=== PATIENT | female | born 1945 | race Caucasian/White ===

== ENCOUNTER → 2017-01-03 | Outpatient (CLI) | payer OTHER | LOC: FIMAGING 09:15 | PROVIDERS: ATTEND Urology | DX: N20.0 Calculus of kidney (principal) ==

== ENCOUNTER 2017-04-02 12:44 | Observation (INO) | payer OTHER ==
--- NOTE | 2017-04-02 13:01 | EDPHY ---
General - History Smoking Status: Former smoker Narrative: I have evaluated and participated in the management of this patient. My co- signature indicates that I have reviewed this chart and that I agree with the findings and the plan of care as documented. My personal history and physical findings include: 71-year-old female history of nephrolithiasis who presents with 2-3 days of right-sided flank and abdominal pain. The pain is constant with waxing and waning. She has not had fever, vomiting, diarrhea, and denies urinary symptoms. On examination heart is regular, lungs are clear to auscultation, abdomen is obese, soft, without distention. She has tenderness in the midepigastrium and right upper quadrant without guarding. Mild right CVA tenderness. (Lynne Todd) CHIEF COMPLAINT: Abdominal and flank pain HISTORY OF PRESENT ILLNESS: Patient complains of right abdominal flank pain. Onset was sometime or Tuesday, she does not recall. Location is the right flank and into the right side of the abdomen. Duration is constant. It does wax and wane but never fully resolved. It is moderate to severe when she moves or bears down. Minimal improvement she holds rest. Endorses anorexia but no vomiting. No fever or chills. No trauma or injury. No urinary complaints. Difficulty with bowel movement this morning which is not necessarily abnormal for her. No bloody stools or urine. No fever. She contacted her primary care physician on the day of onset. They did instruct her to come to the emergency department. She elected not to do so as her symptoms eventually resolved after 2 hours. She went to [facility] today, and they sent her to our facility for further workup. No other associated complaints or modifying factors. REVIEW OF SYSTEMS: Ten systems reviewed and are negative unless otherwise noted in the HPI PCP: Dr. Reyna Abebe SPECIALISTS: Dr. Holguin, GI PAST MEDICAL HISTORY: Hypertension, osteopenia, nephrolithiasis PAST SURGICAL HISTORY: Dilation and curettage x2 SOCIAL HISTORY: Nonsmoker. Originally from [place]. Lives here locally FAMILY HISTORY: Noncontributory EXAMINATION General Appearance: Alert, no distress Head: normocephalic, atraumatic Eyes: Pupils equal and round, no conjunctival pallor or injection ENT, Mouth: Mucous membranes moist Neck: Normal inspection, supple, non-tender Respiratory: Lungs are clear to auscultation. No wheezing, rhonchi or crackles Cardiovascular: Regular rate and rhythm. No murmur Gastrointestinal: Obese Abdomen is soft and nondistended. There is right CVA tenderness. Mild right-sided right upper and right lower quadrant tenderness. No guarding. No tympany. No rigidity. Difficult to obtain fully reliable abdominal examination due to body habitus. Neurological: A&O, nonfocal, normal gait, strength is symmetric in the lower extremities. Skin: Warm and dry, no rash. No petechiae or purpura Extremities: Nontender, no pedal edema Psychiatric: Mood and affect normal DIFFERENTIAL DIAGNOSES: Including but not limited to renal colic, biliary colic, cholecystitis, cholelithiasis, UTI, nephrolithiasis, colitis, diverticulitis, appendicitis MDM: 1:20 p.m. Right flank and abdominal pain. She is in no acute distress with normal vital signs. Given the patient's age and complaint, CT scan of the abdomen pelvis will be ordered. I am awaiting urinalysis to determine with without IV contrast. She is in no acute distress. IV is currently being placed. IV fluid has been ordered. She is not require any pain medication at this time. 1:35 p.m. CBC does reveal leukocytosis with mild left shift. Point of care creatinine is slightly elevated 1.3. No previous available for comparison. Urinalysis reveals some red blood cells, trace leukocyte Estrace and trace ketones. Urine culture has been added. She has been evaluated by Dr. Todd. We have ordered CT scan of the abdomen pelvis without contrast. 3:10 p.m. Notified by radiologist Dr. Morales. CT scan reveals right ureteral stone. Court states a stone in the proximal ureter at the level L5, 8 mm x 3 mm x 4 mm. Moderate right hydronephrosis. 3:30 p.m. Case discussed with the on-call urologist for Dr. Jose Chandler. We discussed the CT scan findings. She does not feel that this stone is likely past. She will come evaluate the patient in the emergency department. I have ordered IV pain medication at this time. I have not ordered Toradol as the patient's creatinine is elevated above 1. 4:20 p.m. Patient resting comfortably. Still waiting Neurology consult. She is in no acute distress. 5:[address] Garcia is here to evaluate the patient. 5:40 p.m. Patient has been evaluated by Dr. Garcia. She recommends admission to the hospitalist. She would like the patient to have her urine strain. She would like the patient to receive Flomax once daily. She liked the urine to be strain. She would like to be contacted should the patient develop fever. Plans for surgical intervention in the morning. I will contact the hospitalist for admission. 5:45 p.m. Case discussed with hospitalist Dr. Pablo. He will admit the patient to his service to observation status. She is admitted in stable condition. (Musa Estevez) - Diagnostics Imaging Results: Imaging Impressions Abdomen/Pelvis CT 04/02/17 13:39 Impression: Right renal obstruction secondary to a ureteral stone. Results called and discussed with Musa Estevez, at 04/02/2017 15:10 Attention: This CT examination is specifically designed to evaluate patients who are clinically suspected of having acute obstructive uropathy. This examination does not use radiographic contrast, and as such, provides only a limited evaluation of the abdomen, pelvis and retroperitoneum. If there is further clinical suspicion for pathological conditions other than obstructive uropathy, a complete CT evaluation of the abdomen and pelvis utilizing intravenous, oral, and rectal contrast should be considered. General information for patients regarding this examination can be found at [email or web address]. If you have questions or comments about this report, please contact me at [phone] (hospital) or [phone] (cell). - Objective Vital Signs: Initial Vital Signs Temperature (C) 98.8 F 04/02/17 12:50 Heart Rate 97 04/02/17 12:50 Respiratory Rate 18 04/02/17 12:50 Blood Pressure 173/89 H 04/02/17 12:50 O2 Sat (%) 96 04/02/17 12:50 O2 Delivery Mode Room Air Allergies/Adverse Reactions: Beef Containing Products Allergy (Verified 04/02/17 12:49) Milk Containing Products Allergy (Verified 04/02/17 12:49) pineapple Allergy (Verified 04/02/17 12:49) eggs Allergy (Uncoded 04/12/16 12:04) milk Allergy (Uncoded 04/12/16 12:05) Home Medications: Medication Instructions Recorded ACETAMINOPHEN 500 mg PO PRN PRN 04/12/16 ALPHA LIPOIC ACID 300 mg PO DAILY 04/12/16 Biotin 500 mcg PO DAILY 04/12/16 Co Q-10 300 mg PO DAILY 04/12/16 Diovan Hct 160-25 mg Tablet 160 mg PO DAILY 04/12/16 [place] 3/Dha/Epa/Other Om3/D3 190 mg PO TID 04/12/16 Vitamin D3 (*) 4,000 iunits PO DAILY 04/12/16 Laboratory Results: Laboratory Results 04/02/17 13:25 04/02/17 13:25 04/02/17 04/02/17 04/02/17 13:25 13:25 13:25 WBC 10.68 10^3/uL H 10^3/uL (3.80-9.50) RBC 5.29 10^6/uL 10^6/uL (4.18-5.33) Hgb 15.8 g/dL g/dL (12.6-16.3) POC Hgb Hct 44.4 % % (38.0-47.0) POC Hct MCV 83.9 fL fL (81.5-99.8) MCH 29.9 pg pg (27.9-34.1) MCHC 35.6 g/dL g/dL (32.4-36.7) RDW 13.1 % % (11.5-15.2) Plt Count 223 10^3/uL 10^3/uL (150-400) MPV 10.0 fL fL (8.7-11.7) Neut % (Auto) 78.3 % H % (39.3-74.2) Lymph % (Auto) 14.8 % L % (15.0-45.0) [place] % (Auto) 6.4 % % (4.5-13.0) Eos % (Auto) 0.2 % L % (0.6-7.6) Baso % (Auto) 0.1 % L % (0.3-1.7) Nucleat RBC Rel Count 0.0 % % (0.0-0.2) Absolute Neuts (auto) 8.37 10^3/uL H 10^3/uL (1.70-6.50) Absolute Lymphs (auto) 1.58 10^3/uL 10^3/uL (1.00-3.00) Absolute Monos (auto) 0.68 10^3/uL 10^3/uL (0.30-0.80) Absolute Eos (auto) 0.02 10^3/uL L 10^3/uL (0.03-0.40) Absolute Basos (auto) 0.01 10^3/uL L 10^3/uL (0.02-0.10) Absolute Nucleated RBC 0.00 10^3/uL 10^3/uL (0-0.01) Immature Gran % 0.2 % % (0.0-1.1) Immature Gran # 0.02 10^3/uL 10^3/uL (0.00-0.10) PT 13.2 SEC SEC (12.0-15.0) INR 1.01 (0.83-1.16) APTT 23.5 SEC SEC (23.0-38.0) POC Sodium Sodium 142 mEq/L mEq/L (134-144) POC Potassium Potassium 4.0 mEq/L mEq/L (3.5-5.2) POC Chloride Chloride 106 mEq/L mEq/L (97-110) Carbon Dioxide 22 mEq/l mEq/l (22-31) Anion Gap 14 mEq/L mEq/L (8-16) POC BUN BUN 18 mg/dL mg/dL (7-23) Creatinine 1.2 mg/dL H mg/dL (0.6-1.0) POC Creatinine Estimated GFR 44 Glucose 97 mg/dL mg/dL (70-100) POC Glucose Calcium 9.9 mg/dL mg/dL (8.5-10.4) Total Bilirubin 1.2 mg/dL mg/dL (0.1-1.4) Conjugated Bilirubin 0.1 mg/dL mg/dL (0.0-0.5) Unconjugated Bilirubin 1.1 mg/dL mg/dL (0.0-1.1) AST 21 IU/L IU/L (14-46) ALT 41 IU/L IU/L (9-52) Alkaline Phosphatase 95 IU/L IU/L (38-126) Troponin I < 0.012 ng/mL ng/mL (0.000-0.034) Total Protein 6.7 g/dL g/dL (6.3-8.2) Albumin 4.7 g/dL g/dL (3.5-5.0) Lipase 47 IU/L IU/L (23-300) Urine Color Urine Appearance Urine pH Ur Specific [place] Urine Protein Urine Ketones Urine Blood Urine Nitrate Urine Bilirubin Urine Urobilinogen Ur Leukocyte Esterase Urine RBC Urine WBC Ur Epithelial Cells Urine Bacteria Urine Mucus Urine Glucose 04/02/17 04/02/17 13:21 13:02 WBC RBC Hgb POC Hgb 15.6 gm/dL gm/dL (12.6-16.3) Hct POC Hct 46 % % (38-47) MCV MCH MCHC RDW Plt Count MPV Neut % (Auto) Lymph % (Auto) [place] % (Auto) Eos % (Auto) Baso % (Auto) Nucleat RBC Rel Count Absolute Neuts (auto) Absolute Lymphs (auto) Absolute Monos (auto) Absolute Eos (auto) Absolute Basos (auto) Absolute Nucleated RBC Immature Gran % Immature Gran # PT INR APTT POC Sodium 141 mEq/L mEq/L (134-144) Sodium POC Potassium 3.8 mEq/L mEq/L (3.3-5.0) Potassium POC Chloride 107 mEq/L mEq/L (97-110) Chloride Carbon Dioxide Anion Gap POC BUN 18 mg/dL mg/dL (7-23) BUN Creatinine POC Creatinine 1.3 mg/dL H mg/dL (0.6-1.0) Estimated GFR Glucose POC Glucose 101 mg/dL H mg/dL (70-100) Calcium Total Bilirubin Conjugated Bilirubin Unconjugated Bilirubin AST ALT Alkaline Phosphatase Troponin I Total Protein Albumin Lipase Urine Color PALE YELLOW Urine Appearance CLEAR Urine pH 5.0 (5.0-7.5) Ur Specific [place] 1.005 (1.002-1.030) Urine Protein NEGATIVE (NEGATIVE) Urine Ketones TRACE H (NEGATIVE) Urine Blood NEGATIVE (NEGATIVE) Urine Nitrate NEGATIVE (NEGATIVE) Urine Bilirubin NEGATIVE (NEGATIVE) Urine Urobilinogen NEGATIVE EU EU (0.2-1.0) Ur Leukocyte Esterase TRACE H (NEGATIVE) Urine RBC 5-10 /hpf H /hpf (0-3) Urine WBC 3-5 /hpf H /hpf (0-3) Ur Epithelial Cells NONE SEEN /lpf /lpf (NONE-1+) Urine Bacteria TRACE /hpf H /hpf (NONE SEEN) Urine Mucus TRACE /lpf /lpf (NONE-1+) Urine Glucose NEGATIVE (NEGATIVE) Medications Given: Discontinued Medications Sodium Chloride (Ns) 1,000 mls @ 0 mls/hr IV EDNOW ONE; Wide Open PRN Reason: Protocol Stop: 04/02/17 13:17 Last Admin: 04/02/17 13:59 Dose: 1,000 mls Ceftriaxone Sodium/Dextrose (Rocephin 1 Gm (Premix)) 50 mls @ 100 mls/hr IV EDNOW ONE PRN Reason: Protocol Stop: 04/02/17 15:44 Last Admin: 04/02/17 15:40 Dose: 50 mls Morphine Sulfate (Morphine) 4 mg IVP EDNOW ONE Stop: 04/02/17 15:29 Last Admin: 04/02/17 15:40 Dose: 4 mg Ondansetron HCl (Zofran) 4 mg IVP EDNOW ONE Stop: 04/02/17 15:29 Last Admin: 04/02/17 15:39 Dose: 4 mg Point of Care Test Results: 04/02/17 13:21 POC Sodium 141 POC Potassium 3.8 POC Chloride 107 POC BUN 18 POC Creatinine 1.3 H POC Glucose 101 H Departure - Departure Disposition: [facility] Inpatient Acute Clinical Impression: Ureteral stone with hydronephrosis, Flank pain, acute Condition: Good Referrals: Reyna Abebe MD [Primary Care Provider] - As per Instructions
[2017-04-02 13:29] LABS: COLOR PALE YELLOW; LEUKOCYTE ESTERASE,URINE TRACE (NEGATIVE); NITRITE,URINE NEGATIVE (NEGATIVE)
[2017-04-02 13:32] LABS: % IMMATURE GRANULYOCYTES 0.2 % (0.0-1.1); ABSOLUTE IMMATURE GRANULOCYTES 0.02 10^3/uL (0.00-0.10); ADD DIFF? NO; ADD MORPH? NO; ADD SCAN? NO; ATYPICAL LYMPHOCYTE FLAG 0 (0-99); FRAGMENT RBC FLAG 0 (0-99); HEMATOCRIT 44.4 % (38.0-47.0); HEMOGLOBIN 15.8 g/dL (12.6-16.3); LEFT SHIFT FLG 0 (0-99); LIPEMIA HEMOLYSIS FLAG 90 (0-99); MEAN CELL HEMOGLOBIN 29.9 pg (27.9-34.1); MEAN CELL HEMOGLOBIN CONCENTR. 35.6 g/dL (32.4-36.7); MEAN CELL VOLUME 83.9 fL (81.5-99.8); PLATELET CLUMPS FLAG 0 (0-99); PLATELET COUNT 223 10^3/uL (150-400); RED BLOOD CELL COUNT 5.29 10^6/uL (4.18-5.33); RED CELL DISTRIBUTION WIDTH 13.1 % (11.5-15.2)
[2017-04-02 13:35] LABS: BACTERIA TRACE /hpf (NONE SEEN); MUCUS TRACE /lpf (NONE-1+)
[2017-04-02 13:44] LABS: ALANINE AMINOTRANSFERASE 41 IU/L (9-52); ALBUMIN 4.7 g/dL (3.5-5.0); ALKALINE PHOSPHATASE 95 IU/L (38-126); ANION GAP 14 mEq/L (8-16); ASPARTATE AMINOTRANSFERASE 21 IU/L (14-46); BILIRUBIN,TOTAL 1.2 mg/dL (0.1-1.4); BILIRUBIN-CONJUGATED 0.1 mg/dL (0.0-0.5); BILIRUBIN-UNCONJUGATED 1.1 mg/dL (0.0-1.1); CALCIUM 9.9 mg/dL (8.5-10.4); CARBON DIOXIDE 22 mEq/l (22-31); CHLORIDE 106 mEq/L (97-110); CREATININE 1.2 mg/dL (0.6-1.0); GLOMERULAR FILTRATION RATE 44; GLUCOSE 97 mg/dL (70-100); SODIUM 142 mEq/L (134-144); TOTAL PROTEIN 6.7 g/dL (6.3-8.2)
[2017-04-02 13:54] LABS: TROPONIN I < 0.012 ng/mL (0.000-0.034)
[2017-04-02] MEDS: NS 1,000 ML IV ONE ×2 (13:59→17:55)
[2017-04-02 14:07] LABS: INR 1.01 (0.83-1.16); PROTIME(PATIENT) 13.2 SEC (12.0-15.0)
[2017-04-02 14:08] LABS: APTT 23.5 SEC (23.0-38.0)
--- NOTE | 2017-04-02 15:08 | CPEKG ---
Heart Rate: 93 RR Interval: 645 P-R Interval: 168 QRSD Interval: 92 QT Interval: 352 QTC Interval: 438 P Sharon: 44 QRS Sharon: -30 T Wave Sharon: 22 EKG Severity - BORDERLINE ECG - EKG Impression: SINUS RHYTHM EKG Impression: LEFT AXIS DEVIATION EKG Impression: BORDERLINE R WAVE PROGRESSION, ANTERIOR LEADS Electronically Signed By: Adonis Galdamez 02-Apr-2017 15:27:34
[2017-04-02] MEDS ORDERED: ONDANSETRON 4 MG/2 ML VIAL IVP ONE (15:28)
[2017-04-02] MEDS ORDERED: NS 1,000 ML IV ONE (17:38)
[2017-04-02] MEDS ORDERED: TAMSULOSIN HCL 0.4 MG CAP PO ONE (17:38)
[2017-04-02] MEDS ORDERED: ONDANSETRON 4 MG/2 ML VIAL IVP PRN (17:52)
[2017-04-02] MEDS ORDERED: ONDANSETRON DISINTEGRATING 4 MG TAB PO PRN (17:52)
[2017-04-02] MEDS ORDERED: HYDROmorphONE/DILAUDID 1 MG/ML INJ IVP PRN (17:52)
[2017-04-02] MEDS ORDERED: HYDROmorphONE/DILAUDID 2 MG TAB PO PRN (17:52)
--- NOTE | 2017-04-02 17:53 | PDCONSULT ---
Information Security Consultant Note: RFC: right obstructing ureteral stone HPI: Very pleasant 71F w presents w acute onset R flank pain a couple days ago, worsened today and she came to ER for evaluation. No fevers, chills, Nausea or emesis. Pain is well controlled after morphine in the OR. She actually feels good currently. No sx of UTI - no dysuria, no hematuria. CT scan abd/pel today performed - images personally reviewed by myself - R 4x8mm obstructing proximal stone, associated hydronephrosis and hydroureter, two nonobs renal stones, one 7mm, the other 2mm. No perinepheric stranding. No other stones seen - none in the left collecting system. ROS 10pt ROS performed, as stated in HPI, otherwise negative. Meds: Reviewed. PAST MEDICAL HISTORY: Hypertension, osteopenia, nephrolithiasis, ABDOULAYE PAST SURGICAL HISTORY: Dilation and curettage x2 SOCIAL HISTORY: Nonsmoker. Originally from [place]. Lives here locally FAMILY HISTORY: Noncontributory EXAMINATION General Appearance: NAD A&O CV: regular rate Respiratory: Normal rate of brathing Cardiovascular: Regular rate and rhythm. No murmur Gastrointestinal: Obese, soft, NT, ND. : Right CVA tenderness. Skin: Warm and dry, no rash. No petechiae or purpura Extremities: Nontender, no pedal edema Psychiatric: Mood and affect normal Labs: WBC 10.58 Hgb 15 Cr 1.2 UA - trace leuks, 1-3WBC A/P Right ureteral stone, obstructing and symptomatic. Right nonobs stones. I reviewed with her that her chance of passing this ureteral stone is <40% in 21days and she should expect to be on strong pain meds and drink 2-3L a day in order to pass this stone. I reviewed with her the images. I reviewed with her that recommendation is intervention w ureteroscopy, laser lithotripsy, stent. She said that ESWl does not work for her stones. I explained the risks of intervention including bleeding, infection, pain, hematuria, injury to the bladder, ureter, urethra, surrounding tissues, need for a stent and likely stent discomfort. Explained the possibility that I may not be able to access her stone w my instruments which would require placement of a ureteral stent and another surgery to treat her stones. Explained the possibility that infection may be above the stone and any infection seen during the surgery would require placement of a stent and treatment of stone at a later date after infection resolved. Explained the possibility that if I would not be able to even place a stent, IR would need to place a PCNT and then subsequent surgeries would be required to treat her stones. She understood these risks, that the benefit of treating her obstructing stone and nonobs stones outweights the risks. She understood and agrees to proceed. We have added her on for tomorrow at 8am, laser rent has been notified and will be here. Plan: Admit to Hospitalist. Appreciate Dr. Pablo's assistance in taking care of this patient. Call me if any fevers or unstable vitals tonight. Flomax, strain her urine, IVF, NPO at MN and continue narcotic pain meds PRN. Consent discussed and received. Cee Garcia MD Urology [facility]
[2017-04-02] MEDS ORDERED: POLYETHYLENE GLYCOL 3350 17 GM PKT PO PRN (17:55)
[2017-04-02] MEDS ORDERED: LACTULOSE 20 GM/30 ML UDCUP PO PRN (17:55)
[2017-04-02] MEDS ORDERED: BISACODYL 10 MG SUPP PR PRN (17:55)
[2017-04-02] MEDS ORDERED: MAGNESIUM HYDROXIDE 30 ML UDCUP PO PRN (17:55)
[2017-04-02] MEDS ORDERED: NS 1,000 ML IV SCH (18:00)
--- NOTE | 2017-04-02 19:48 | PDGENHP ---
History and Physical - Chief Complaint Acute flank pain - History of Present Illness Primary care provider: Dr. Reyna Abebe Primary director of diagnostic imaging: Dr. Todd Primary urologist: Dr. German Cuevas HPI: 71-year-old female presenting with acute flank pain located in the right flank, characterized as sharp severe waxing and waning pain with onset of symptoms 3 days ago and constant duration thereafter. Pain is exacerbated by motion and deep inspiration, slightly alleviated with rest. It is associated with anorexia, nausea which has been exacerbated by food smells. She received 4 mg of morphine in the emergency department and this seemed to alleviate the pain, but it is returning at this time and she is beginning to feel somewhat tremulous. She otherwise denies any urinary symptoms, denies any fevers or chills. She reports that the symptoms are somewhat lower in severity then when she experienced a kidney stone 8 years ago. She has otherwise been eating and drinking well prior to this presentation, and she does not know of any precipitating factors. History Information - Allergies/Home Medication List Allergies/Adverse Reactions: Beef Containing Products Allergy (Verified 04/02/17 12:49) Milk Containing Products Allergy (Verified 04/02/17 12:49) pineapple Allergy (Verified 04/02/17 12:49) eggs Allergy (Uncoded 04/12/16 12:04) milk Allergy (Uncoded 04/12/16 12:05) Home Medications: Co Q-10 300 mg PO DAILY 04/12/16 [Last Taken 04/01/17] [place] 3/Dha/Epa/Other Om3/D3 190 mg PO DAILY 04/12/16 [Last Taken 04/01/17] Vitamin D3 (*) 4,000 iunits PO DAILY 04/12/16 [Last Taken 04/01/17] Ascorbic Acid [Vitamin C 500 mg (*)] 500 mg PO DAILY 04/02/17 [Last Taken Unknown] Valsartan [Diovan (*)] 160 mg PO DAILY 04/02/17 [Last Taken 04/02/17] I have personally reviewed and updated: family history, medical history, social history, surgical history - Past Medical History Additional medical history: Nephrolithiasis with natural passage of stone in 2007. Varicose veins with chronic lower extremity edema, outside records reviewed including 04/13/[address] Jennifer Siddiqi. Osteoarthritis of bilateral knees. Hypertension - Surgical History Additional surgical history: D and C. Vein sclerotherapy. Colonoscopy 3 years ago identifying at no - Family History Additional family history: Family history of nephrolithiasis or renal failure, colon cancer is prevalent - Social History Smoking Status: Former smoker Alcohol Use: Rarely Drug Use: None Additional social history: Normally independent in her ADLs, likes to cook, likes to eat Review of Systems Review of Systems: ROS: 10pt was reviewed & negative except for what was stated in HPI & below Gastrointestinal: Reports: abdominal pain, nausea Physical Exam Physical Exam: Temp Pulse Resp BP Pulse Ox 36.8 C 104 H 16 142/79 H 92 04/02/17 18:33 04/02/17 18:33 04/02/17 18:33 04/02/17 18:33 04/02/17 18:33 Constitutional: no apparent distress, obese, uncomfortable, No not in pain ( Mild pain) Eyes: PERRL, anicteric sclera, EOMI Ears, Nose, Mouth, Throat: moist mucous membranes, hearing normal, ears appear normal, no oral mucosal ulcers Cardiovascular: tachycardia, edema (Trace bilateral lower extremity), No systolic murmur, No irregularly irregular Respiratory: no respiratory distress, no rales or rhonchi, clear to auscultation Gastrointestinal: normoactive bowel sounds, no palpable masses, tenderness ( Right CVA), guarding (Voluntary right CVA), No distension Genitourinary: no bladder fullness, no bladder tenderness Neurologic: AAOx3, sensation intact bilaterally, No weakness Psychiatric: interacting appropriately, not anxious, not encephalopathic, thought process linear Lab Data & Imaging Review 04/02/17 13:25 04/02/17 13:25 WBC 10.68 10^3/uL (3.80-9.50) H 04/02/17 13:25 RBC 5.29 10^6/uL (4.18-5.33) 04/02/17 13:25 Hgb 15.8 g/dL (12.6-16.3) 04/02/17 13:25 POC Hgb 15.6 gm/dL (12.6-16.3) 04/02/17 13:21 Hct 44.4 % (38.0-47.0) 04/02/17 13:25 POC Hct 46 % (38-47) 04/02/17 13:21 MCV 83.9 fL (81.5-99.8) 04/02/17 13:25 MCH 29.9 pg (27.9-34.1) 04/02/17 13:25 MCHC 35.6 g/dL (32.4-36.7) 04/02/17 13:25 RDW 13.1 % (11.5-15.2) 04/02/17 13:25 Plt Count 223 10^3/uL (150-400) 04/02/17 13:25 MPV 10.0 fL (8.7-11.7) 04/02/17 13:25 Neut % (Auto) 78.3 % (39.3-74.2) H 04/02/17 13:25 Lymph % (Auto) 14.8 % (15.0-45.0) L 04/02/17 13:25 [place] % (Auto) 6.4 % (4.5-13.0) 04/02/17 13:25 Eos % (Auto) 0.2 % (0.6-7.6) L 04/02/17 13:25 Baso % (Auto) 0.1 % (0.3-1.7) L 04/02/17 13:25 Nucleat RBC Rel Count 0.0 % (0.0-0.2) 04/02/17 13:25 Absolute Neuts (auto) 8.37 10^3/uL (1.70-6.50) H 04/02/17 13:25 Absolute Lymphs (auto) 1.58 10^3/uL (1.00-3.00) 04/02/17 13:25 Absolute Monos (auto) 0.68 10^3/uL (0.30-0.80) 04/02/17 13:25 Absolute Eos (auto) 0.02 10^3/uL (0.03-0.40) L 04/02/17 13:25 Absolute Basos (auto) 0.01 10^3/uL (0.02-0.10) L 04/02/17 13:25 Absolute Nucleated RBC 0.00 10^3/uL (0-0.01) 04/02/17 13:25 Immature Gran % 0.2 % (0.0-1.1) 04/02/17 13:25 Immature Gran # 0.02 10^3/uL (0.00-0.10) 04/02/17 13:25 PT 13.2 SEC (12.0-15.0) 04/02/17 13:25 INR 1.01 (0.83-1.16) 04/02/17 13:25 APTT 23.5 SEC (23.0-38.0) 04/02/17 13:25 POC Sodium 141 mEq/L (134-144) 04/02/17 13:21 Sodium 142 mEq/L (134-144) 04/02/17 13:25 POC Potassium 3.8 mEq/L (3.3-5.0) 04/02/17 13:21 Potassium 4.0 mEq/L (3.5-5.2) 04/02/17 13:25 POC Chloride 107 mEq/L (97-110) 04/02/17 13:21 Chloride 106 mEq/L (97-110) 04/02/17 13:25 Carbon Dioxide 22 mEq/l (22-31) 04/02/17 13:25 Anion Gap 14 mEq/L (8-16) 04/02/17 13:25 POC BUN 18 mg/dL (7-23) 04/02/17 13:21 BUN 18 mg/dL (7-23) 04/02/17 13:25 Creatinine 1.2 mg/dL (0.6-1.0) H 04/02/17 13:25 POC Creatinine 1.3 mg/dL (0.6-1.0) H 04/02/17 13:21 Estimated GFR 44 04/02/17 13:25 Glucose 97 mg/dL (70-100) 04/02/17 13:25 POC Glucose 101 mg/dL (70-100) H 04/02/17 13:21 Calcium 9.9 mg/dL (8.5-10.4) 04/02/17 13:25 Total Bilirubin 1.2 mg/dL (0.1-1.4) 04/02/17 13:25 Conjugated Bilirubin 0.1 mg/dL (0.0-0.5) 04/02/17 13:25 Unconjugated Bilirubin 1.1 mg/dL (0.0-1.1) 04/02/17 13:25 AST 21 IU/L (14-46) 04/02/17 13:25 ALT 41 IU/L (9-52) 04/02/17 13:25 Alkaline Phosphatase 95 IU/L (38-126) 04/02/17 13:25 Troponin I < 0.012 ng/mL (0.000-0.034) 04/02/17 13:25 Total Protein 6.7 g/dL (6.3-8.2) 04/02/17 13:25 Albumin 4.7 g/dL (3.5-5.0) 04/02/17 13:25 Lipase 47 IU/L (23-300) 04/02/17 13:25 Urine Color PALE YELLOW 04/02/17 13:02 Urine Appearance CLEAR 04/02/17 13:02 Urine pH 5.0 (5.0-7.5) 04/02/17 13:02 Ur Specific [place] 1.005 (1.002-1.030) 04/02/17 13:02 Urine Protein NEGATIVE (NEGATIVE) 04/02/17 13:02 Urine Ketones TRACE (NEGATIVE) H 04/02/17 13:02 Urine Blood NEGATIVE (NEGATIVE) 04/02/17 13:02 Urine Nitrate NEGATIVE (NEGATIVE) 04/02/17 13:02 Urine Bilirubin NEGATIVE (NEGATIVE) 04/02/17 13:02 Urine Urobilinogen NEGATIVE EU (0.2-1.0) 04/02/17 13:02 Ur Leukocyte Esterase TRACE (NEGATIVE) H 04/02/17 13:02 Urine RBC 5-10 /hpf (0-3) H 04/02/17 13:02 Urine WBC 3-5 /hpf (0-3) H 04/02/17 13:02 Ur Epithelial Cells NONE SEEN /lpf (NONE-1+) 04/02/17 13:02 Urine Bacteria TRACE /hpf (NONE SEEN) H 04/02/17 13:02 Urine Mucus TRACE /lpf (NONE-1+) 04/02/17 13:02 Urine Glucose NEGATIVE (NEGATIVE) 04/02/17 13:02 Visualized and Interpreted EKG results: Yes EKG Interpretation: Positive for: other (Normal sinus mechanism) Assessment & Plan Assessment: 71-year-old female presenting with acute obstructive uropathy in the setting of right-sided ureteral nephrolithiasis Plan: 1. Obstructive uropathy. Acute, new problem this provider, further workup indicated. Evidenced by rising serum creatinine level as well as right ureteral obstruction by stone on CT imaging -supportive care with oral and IV pain medications -bowel regimen -incentive spirometer -discussed with Dr. Cee Garcia, her phone number is [phone], she recommends hydration, Flomax, strain urine, cystoscopy in a.m. -NPO after midnight, continue to strain urine -continue to monitor white blood cell count and fever curve, as patient is at risk for urinary tract infection as a complication 2. Nephrolithiasis. Obstructing the right ureter, stone should be sent for analysis after removal, patient should receive outpatient follow-up with Urology or Nephrology 3. Hypertension. Continue home medications once reconciled Diet. Regular, NPO after midnight Prophylaxis. High risk patient, SCDs, pharm contraindicated given surgery in a.m. Code. Full Disposition. Anticipated discharge 04/03, pending further workup and treatment of patient's obstructing stone as outlined above.
[2017-04-02] MEDS: ACETAMINOPHEN 325 MG TAB PO PRN (20:21)
[2017-04-02] MEDS: SENNOSIDES/DOCUSATE SODIUM TAB PO SCH (20:22)
[2017-04-03] MEDS: ACETAMINOPHEN 325 MG TAB PO PRN (03:08)
[2017-04-03 05:34] LABS: % IMMATURE GRANULYOCYTES 0.3 % (0.0-1.1); ABSOLUTE IMMATURE GRANULOCYTES 0.03 10^3/uL (0.00-0.10); ADD DIFF? NO; ADD MORPH? NO; ADD SCAN? NO; ATYPICAL LYMPHOCYTE FLAG 0 (0-99); FRAGMENT RBC FLAG 0 (0-99); HEMATOCRIT 39.7 % (38.0-47.0); HEMOGLOBIN 13.7 g/dL (12.6-16.3); LEFT SHIFT FLG 0 (0-99); LIPEMIA HEMOLYSIS FLAG 90 (0-99); MEAN CELL HEMOGLOBIN 30.3 pg (27.9-34.1); MEAN CELL HEMOGLOBIN CONCENTR. 34.5 g/dL (32.4-36.7); MEAN CELL VOLUME 87.8 fL (81.5-99.8); MEAN PLATELET VOLUME 10.4 fL (8.7-11.7); PLATELET CLUMPS FLAG 20 (0-99); PLATELET COUNT 187 10^3/uL (150-400); RED BLOOD CELL COUNT 4.52 10^6/uL (4.18-5.33); RED CELL DISTRIBUTION WIDTH 13.2 % (11.5-15.2)
[2017-04-03] MEDS ORDERED: IOPAMIDOL (ISOVUE-300) 150 ML BTL ONE (05:56)
[2017-04-03 06:01] LABS: ANION GAP 10 mEq/L (8-16); CARBON DIOXIDE 22 mEq/l (22-31); CHLORIDE 110 mEq/L (97-110); CREATININE 1.2 mg/dL (0.6-1.0); GLOMERULAR FILTRATION RATE 44; GLUCOSE 91 mg/dL (70-100); POTASSIUM 4.2 mEq/L (3.5-5.2); SODIUM 142 mEq/L (134-144)
--- NOTE | 2017-04-03 07:52 | PDHPUP ---
History & Physical Update H&P update statement: This history and physical update is based on an assessment of the patient which was completed after admission or registration (within 24 hours), but prior to the surgery/procedure. H&P update: H&P reviewed & patient examined, no change in patient's condition since H&P completed
--- NOTE | 2017-04-03 07:55 | SOAPPROG ---
SOAP Progress Note Assessment/Plan: Assessment: 71F w obstructing R obstructing ureteral stone, nonobs renal stones. Pain well controlled overnight. NO stone retrieved. NO fevers or current complaints Plan: TO the OR for R URS, laser, stent. Questions answered. 04/03/17 07:52 Subjective: NAEON, pain well controlled. Objective: Vital Signs Temp Pulse Resp BP Pulse Ox 36.6 C 93 18 126/72 H 96 04/03/17 07:38 04/03/17 07:38 04/03/17 07:38 04/03/17 07:38 04/03/17 07:38 Laboratory Results 04/03/17 04:43 04/03/17 04:43 04/02/17 04/03/17 04/04/17 05:59 05:59 05:59 Intake Total 1800 312 Output Total 1325 Balance 475 312 PT 13.2 SEC (12.0-15.0) 04/02/17 13:25 INR 1.01 (0.83-1.16) 04/02/17 13:25 Gen:NAD A*O CV: Regular Lungs: Normal effort Abd: Soft Ext: Warm - Pending Discharge Pending Discharge Within 24 Hours: Yes Pending Discharge Date: 04/04/17 Pending Discharge Time: 14:00 ICD10 Worksheet Patient Problems: Problems Problem Status Onset Flank pain, acute Acute Ureteral stone with hydronephrosis Acute
[2017-04-03] MEDS ORDERED: MIDAZOLAM 2 MG/2 ML VIAL IVP ONE (07:57)
[2017-04-03] MEDS ORDERED: OPIUM/BELLADONNA ALKALO SUPP PR ONE (07:58)
[2017-04-03] MEDS ORDERED: OPIUM/BELLADONNA ALKALO SUPP PR PRN (08:00)
[2017-04-03] MEDS ORDERED: ceFAZolin 2 GM/DEXTROSE 100 ML IV ONE (08:00)
--- NOTE | 2017-04-03 08:00 | PDANEPAE ---
ANE History of Present Illness cysto with stone removal ANE Past Medical History - Cardiovascular History Hx Hypertension: Yes Hx Arrhythmias: No Hx Chest Pain: No Hx Coronary Artery / Peripheral Vascular Disease: No Hx CHF / Valvular Disease: No Hx Palpitations: No - Pulmonary History Hx COPD: No Hx Asthma/Reactive Airway Disease: No Hx Recent Upper Respiratory Infection: No Hx Oxygen in Use at Home: No Hx Sleep Apnea: Yes Sleep Apnea Screening Result - Last Documented: Positive Pulmonary History Comment: CPAP - Neurologic History Hx Cerebrovascular Accident: No Hx Seizures: No Hx Dementia: No - Endocrine History Hx Diabetes: No - Renal History Hx Renal Disorders: Yes Renal History Comment: Kidney stones - Liver History Hx Hepatic Disorders: No - Neurological & Psychiatric Hx Hx Neurological and Psychiatric Disorders: No - Cancer History Hx Cancer: No - Congenital Disorder History Hx Congenital Disorders: No - GI History Hx Gastrointestinal Disorders: Yes Gastrointestinal History Comment: Irritable bowel - Other Health History Other Health History: parathyroid disease, - Chronic Pain History Chronic Pain: Yes - Surgical History Prior Surgeries: Lt. breast lumpectomy. Bilateral leg phlebectomy. ANE Review of Systems Review of Systems: - Exercise capacity METS (RN): 4 METS - Systems Muscolosketal: Reports: back pain, joint pain (rotator cuff tear) ANE Patient History - Allergies Allergies/Adverse Reactions: Beef Containing Products Allergy (Verified 04/02/17 12:49) Milk Containing Products Allergy (Verified 04/02/17 12:49) pineapple Allergy (Verified 04/02/17 12:49) eggs Allergy (Uncoded 04/12/16 12:04) milk Allergy (Uncoded 04/12/16 12:05) - Home Medications Home medications: home medication list seen and reviewed Home Medications: Co Q-10 300 mg PO DAILY 04/12/16 [Last Taken 04/01/17] [place] 3/Dha/Epa/Other Om3/D3 190 mg PO DAILY 04/12/16 [Last Taken 04/01/17] Vitamin D3 (*) 4,000 iunits PO DAILY 04/12/16 [Last Taken 04/01/17] Ascorbic Acid [Vitamin C 500 mg (*)] 500 mg PO DAILY 04/02/17 [Last Taken Unknown] Valsartan [Diovan (*)] 160 mg PO DAILY 04/02/17 [Last Taken 04/02/17] - NPO status NPO Status: no food or drink >8 hours NPO Since - Liquids (Date): 04/03/17 NPO Since - Liquids (Time): 00:00 NPO Since - Solids (Date): 04/03/17 NPO Since - Solids (Time): 00:00 - Anes Hx Anes Hx: post operative nausea (and shaking) - Smoking Hx Smoking Status: Former smoker - Alcohol Use Alcohol Use: Rarely - Family Anes Hx Family Anes Hx: none ANE Labs/Vital Signs - Labs Result Diagrams: 04/03/17 04:43 04/03/17 04:43 - Labs - BMP Sodium: EKG also reviewed - Vital Signs Blood Pressure: 126/72 Heart Rate: 93 Respiratory Rate: 18 O2 Sat (%): 96 Height: 157.48 cm Weight: 103.7 kg ANE Physical Exam - Airway Neck exam: FROM Mallampati Score: Class 2 Mouth exam: normal dental/mouth exam - Pulmonary Pulmonary: no respiratory distress - Cardiovascular Cardiovascular: regular rate and rhythym - ASA Status ASA Status: II ANE Anesthesia Plan Anesthesia Plan: GA w LMA (vs ETT. R/B/A explained and pt. agrees to proceed)
[2017-04-03] MEDS ORDERED: MIDAZOLAM 2 MG/2 ML VIAL ONE (08:06)
[2017-04-03] MEDS ORDERED: fentaNYL 100 MCG/2 ML INJ ONE (08:11)
[2017-04-03] MEDS ORDERED: LIDOCAINE 2% 100 MG/5 ML SYR ONE (08:12)
[2017-04-03] MEDS ORDERED: PROPOFOL 200 MG/20 ML VIAL ONE ×2 (08:12)
[2017-04-03] MEDS ORDERED: ONDANSETRON 4 MG/2 ML VIAL ONE (08:12)
[2017-04-03] MEDS ORDERED: DEXAMETHASONE 4 MG/ML VIAL ONE ×2 (08:12→08:25)
[2017-04-03] MEDS ORDERED: LIDOCAINE 2% JELLY 5 ML TUBE ONE ×2 (08:13→08:25)
[2017-04-03] MEDS ORDERED: KETOROLAC 30 MG/1 ML SDV ONE (08:26)
[2017-04-03] MEDS ORDERED: LIDOCAINE 2% JELLY 20 ML (UROJECT) ONE ×2 (08:26→08:35)
[2017-04-03] MEDS ORDERED: PHENYLEPHRINE HCL 100 MCG/ML SYR ONE (08:39)
[2017-04-03] MEDS ORDERED: NALOXONE HCL 0.4 MG/ML INJ IVP PRN (08:58)
[2017-04-03] MEDS ORDERED: OXYCODONE/APAP 5/325 TAB PO PRN (08:58)
[2017-04-03] MEDS ORDERED: ALBUTEROL 3 ML DEYVIAL IH PRN (08:58)
[2017-04-03] MEDS ORDERED: fentaNYL 100 MCG/2 ML INJ IVP PRN (08:58)
[2017-04-03] MEDS ORDERED: ACETAMINOPHEN 500 MG TAB PO PRN (08:58)
[2017-04-03] MEDS ORDERED: DEXAMETHASONE 4 MG/ML VIAL IVP PRN (08:58)
[2017-04-03] MEDS ORDERED: HYDROCODONE/APAP 5/325 TAB PO PRN (08:58)
[2017-04-03] MEDS ORDERED: LABETALOL HCL 50 MG/10 ML SYR IVP PRN (08:58)
[2017-04-03] MEDS ORDERED: MEPERIDINE 25 MG/ML SYR IVP PRN (08:58)
[2017-04-03] MEDS ORDERED: PROMETHAZINE HCL 25 MG/ML INJ IVP PRN (08:58)
[2017-04-03] MEDS ORDERED: ONDANSETRON 4 MG/2 ML VIAL IVP PRN (08:58)
[2017-04-03] MEDS ORDERED: VALSARTAN 160 MG TAB PO SCH (09:00)
[2017-04-03] MEDS ORDERED: MEPERIDINE 25 MG/ML SYR ONE (09:29)
--- NOTE | 2017-04-03 09:30 | POSTANESTH ---
Post Anesthetic Evaluation Cardiovascular Status: Normal, Stable Respiratory Status: Normal, Stable Level of Consciousness/Mental Status: Can Participate in Eval Pain Control: Adequate, Prn Tx Ordered Nausea/Vomiting Control: Adequate, Prn Tx Ordered Complications Possibly Related to Anesthesia: None Noted Notes: shaking as with previous surgeries. Rewarming and Demerol in progress
--- NOTE | 2017-04-03 09:33 | POSTOPPROG ---
Post Op Note Date of Operation: 04/03/17 Surgeon: Cee Garcia Granulating Blender: KORTNEY Anesthesiologist: Kris Nguyen Anesthesia: GET(General Endotracheal) Pre-op Diagnosis: Right nephrolithiasis Post-op Diagnosis: same Indication: Obstructing right ureteral stone, pain Procedure: cystoscopy, right retrograde pyelogram, right ureteroscopy, stent Findings: sediment that appeared to be stone passed out of ureter when placing wires Inf/Abcess present in the surg proc area at time of surgery?: No Depth: Organ Space (bladder/right collecting system) EBL: Minimal Complications: None, patient tolerated procedure well Specimen(s): Sent some sediment for stone analysis
[2017-04-03 09:39] VITALS: TEMP 98.2
[2017-04-03] MEDS: SENNOSIDES/DOCUSATE SODIUM TAB PO SCH (10:40)
--- NOTE | 2017-04-03 10:46 | GOP ---
[f rep st] OPERATIVE REPORT DATE OF OPERATION: 04/03/2017 SURGEON: Cee Garcia MD ANESTHESIOLOGIST: Kris Nguyen MD. PREOPERATIVE DIAGNOSIS: Right nephrolithiasis. POSTOPERATIVE DIAGNOSIS: Right nephrolithiasis. PROCEDURE PERFORMED: Cystoscopy; right retrograde pyelogram; right diagnostic ureteroscopy; and sten t, 6 Sudanese x 24 cm. FINDINGS: When I manipulated her right collecting system with wires, there was expulsion of sediment from the right ureter and the right ureteral orifice into the bladder that looked like stone fragmen ts, but they were very soft and it looked like sediment versus stone fragments. On retrograde, I was not able to see any significant stone in the ureter. On fluoroscopy though, I was able to see the n on-obstructing stones in her right collecting system. Also I was unable to place a 12-Sudanese uretera l access sheath over a very tight area right at the iliac crossing. So at this point I elected to no t gain access to the upper renal stones and just place a stent. ESTIMATED BLOOD LOSS: Minimal. INDICATIONS: The patient presented to the [facility] ER last night with worsening of right-sided flank pain that was becoming acutely worse. CT was performed, demonstrating a distal 4 x 8 mm obstructing ston e with associated hydronephrosis and hydroureter. She also had non-obstructing stones in her right r enal pelvis that included a 7 mm stone and a smaller 2 mm stone. We discussed the options; a trial o f passage, which with this 8 mm stone in her right ureter that was obstructing would be less than 40% , as well as options of ureteroscopy. She did not want to do trial of passage and elected to do inte rvention. I did discuss the risks in detail, including bleeding, infection, inability to access the stone with my scopes and my instruments, injury to the ureter, urethra, bladder, also discomfort and also the need for a stent and associated stent discomfort. She understood all these risks and agreed to proceed. DESCRIPTION OF PROCEDURE: The patient was seen in the preoperative holding area, where we confirmed the consents and the correct side being the right. I also reviewed her images in detail again. She w as taken back to the cystoscopy suite, placed on the cystoscopy table in the supine position. Genera l anesthesia induced without complication. Time-outs were performed and core measures satisfied, inc luding placement of a Sergey-Hugger, SCDs, and verification that 2 g Ancef antibiotic was being adminis tered. She was brought to the end of the table, placed in dorsal lithotomy position and all pressure points padded. Genitalia draped and prepped in the standard surgical fashion with Betadine. A rigi d cystoscope easily cannulated her urethral meatus and was advanced into her bladder. Calle cystoscopy was performed and there were no stones in the bladder. There were also no bladder mucosal abnormali ties, with no cellules, trabeculations, lesions, masses, or abnormalities. Both the right and left u reteral orifices were in their expected anatomical position. I advanced a 5-Sudanese open-ended cathet er into the right ureteral orifice and performed a retrograde pyelogram, and I did not see any fillin g defect with this retrograde pyelogram. At this point, I felt from my CT evaluation that the stone was around L5, and so I felt we would do some rigid ureteroscope. I began also then placing a 0.035 glidewire into the right collecting system, and I did this with 2 wires, and when I placed these wire s I noted sediment that was being expulsed from the right ureteral orifice. It did appear to be soft and stone-like, but not crystal-like. It did not appear to be infection, and there was no concern f or infection at this point from my visualization, but I did think it was stone fragments, or whatever was in her right ureteral orifice that was seen on CT scan blocking. So at this point, I had 2 wire s up that I had placed with fluoroscopic guidance, and then I removed the cystoscope, leaving the wir es in placed, secured one of the wires with a hemostat to the drape, and then advanced a rigid ureter oscope into the urethral meatus, into the right ureteral orifice, and carefully advanced the scope up into the right ureter. There was a very narrow segment, which was probably around L5, as well that I had a hard time negotiating with my rigid scope, so then I took out one of the wires and then backl oaded this wire into my ureteroscope, and then went over the wire and was able to negotiate this very tight area safely and carefully with my rigid ureteroscope. At this point, I was able to advance th e ureteroscope all the way into the right collecting system, and at no point during my retrograde adv ancement did I note any stone. So at this point I had a safety wire up, and I was still going over m y other working wire with my scope, that wire was still loaded into my ureteroscope, and I carefully advanced the ureteroscope back down the ureter antegrade, and again saw no stone, no stone fragments, nothing resembling a stone. So at this point I felt that what had come out of the ureter when I was doing my manipulation with the wires was indeed the stone or the obstructing material that had been obstructing her ureter. So at this point I felt I wanted to go up and get those right non-obstructin g stones, so I still had a working wire in place and a safety wire, so over the working wire I, with fluoroscopic guidance, attempted to advance a 12/14 Sudanese ureteral access sheath. I got hung up at the area that was narrow, that I had described that I had a hard time negotiating with my rigid scope , so I was unable to pass that access sheath over this area. I removed that access sheath, leaving t he wire in place, and then disassembled it and then attempted to just pass the 12-Sudanese inner sheath over the wire, and this passed easily up into the right collecting system. I held it there for abou t 15 seconds to passively dilate, then I removed that inner sheath. The wire was still in place, and I then again attempted the 12/14-Sudanese ureteral access sheath, and again got to the area of tightne ss and was unable to pass this 14-Sudanese aspect of the ureteral access sheath, so at this point I fel t best just to place a stent and to come back at a later date when the ureter is passively dilated fr om the stent and we can take care of this upper collecting pole stones. So my safety and my working wire were still in place. I backloaded the working wire into my cystoscope and then with fluoroscopi c and direct visualization with my scope, placed a 6-Sudanese x 24 cm double-J stent. There was a very nice curl in the renal pelvis and a nice curl in the bladder that I saw with fluoroscopy, as well as with direct vision. I did empty her bladder. I did see some small sediment floating around. I tri ed to collect some of this for analysis, but again it was very tiny and could not confirm that this i ndeed would be positive for stone, but at this point I emptied her bladder and she was awoken from an esthesia. I placed a belladonna-opium suppository, as well as Lidocaine jelly per urethra. She was awoken from anesthesia and transferred to PACU in good condition. She did well during the entire eliel e. COMPLICATIONS: None. The patient tolerated the procedure well. /[id number]/MODL
--- NOTE | 2017-04-03 10:57 | ASMTCMCOM ---
CM Note CM Note Notes: 71 year old female admitted for R flank pain-ureteral stone. Had surgery w/stent. No discharge needs anticipated. Date Signed: 04/03/2017 10:56 AM Electronically Signed By:Kathrin Cr LCSW
[2017-04-03] MEDS ORDERED: PHENAZOPYRIDINE HCL 200 MG TAB PO SCH (13:00)
--- NOTE | 2017-04-03 13:41 | PDDCSUM ---
Discharge Summary Discharge Summary: DISCHARGE DIAGNOSES: -acute renal colic, acute hydronephrosis, acute obstructing ureteral stone -acute kidney injury, likely due to obstruction CONSULTANTS: Dr. Cee Garcia PROCEDURES: Cysto ureteroscopy, retrieval of ureteral stones, placement of ureteral stent, uncomplicated HOSPITAL COURSE SUMMARY: This patient with a history of kidney stones presented with typical acute renal colic. She had some hematuria and she was found to have obstructing right ureteral stone with hydro nephrosis on CT imaging. There was no fever and there was no evidence of urinary infection. The patient did not have signs of sepsis. She was treated with hydration and analgesia. She went to the operating room with Dr. Garcia. She had cysto ureteroscopy with removal of stones and subsequently placement of stent. This was all uncomplicated and the patient tolerated quite well. At this time the patient is eating, ambulating in the hallway without difficulty, emptying her bladder normally. She has just a slight pinching sensation when she passes urine in the flank likely related to her stent. Otherwise she feels fine. She appears quite stable and ready for discharge to home. PENDING TEST RESULTS: Stone investigation MEDICATION CHANGES: Addition of oxybutynin, Flomax, Pyridium at least until follow-up with Dr. Garcia FOLLOW-UP PLAN: Follow up in 1-[address] Garcia, she will arrange further retrieval stones and she will need removal of stent Greater than 35 minutes bedside and care coordination time today
[2017-04-03 13:45] VITALS: BP 119/69; PULSE 68; RESP 16; O2SAT 97
--- NOTE | 2017-04-03 15:23 | ASDISCHSUM ---
Discharge Information Plan Status:Home with No Needs Medically Cleared to Leave:04/02/2017 Discharge Date:04/03/2017 03:10 PM CM D/C Disposition:Home, Routine, Self-Care ADT D/C Disposition:Home, Routine, Self-Care Projected Discharge Date:04/03/2017 02:00 PM Transportation at D/C:Friend Discharge Delay Reason: Follow-Up Date:04/03/2017 02:00 PM Discharge Slot: Final Diagnosis:Flank pain- R ureteral stone Placement Information Patient Contact Information Contact Name:NELLI Relationship:Friend [address] Work Phone: [place] Phone: [facility]/Zip Code:[place] [address] Email: Financial Information Financial Class: Primary Plan Desc:MEDICARE OUTPATIENT Primary Plan Number:[id number] Secondary Plan [facility] Secondary Plan Number:[id number] Assessment Information [facility] CM Progress Note CM Note CM Note Notes: 71 year old female admitted for R flank pain-ureteral stone. Had surgery w/stent. No discharge needs anticipated. Date Signed: 04/03/2017 10:56 AM Electronically Signed By:Kathrin Cr LCSW Case Management Discharge Plan Note Case Management Discharge Discharge Order Complete? Answers: Yes Patient to Obtain Answers: Independently Medications Transportation Arranged Answers: Family/Friends Transport will Pick (Date 04/03/2017 02:00 PM & Time) Case Management Transport Answers: No Notes: Not needed Form Complete Faxed Final Orders Answers: No Notes: Going home Agency/Facility Transfer Answers: No Notes: No receiving agency Report Printed & Faxed to Receiving Agency Family Notified Answers: No Notes: No family noted Discharge Comments Notes: Patient has been discharged. She is to follow up with Dr. Garcia in 1-2 wks. No other needs noted. Date Signed: 04/03/2017 01:43 PM Electronically Signed By:Kathrin Cr LCSW Intervention Information
== END 2017-04-03 15:10 | disposition home or self-care (01) ==
LOC: F1N 18:23
PROVIDERS: ADMIT Internal Medicine; ATTEND Internal Medicine
PROC: 0T7D8DZ Dilation of Urethra with Intraluminal Device, Via Natural or Artificial Opening Endoscopic (ICD-10-PCS; principal; 2017-04-02)
DX: N20.1 Calculus of ureter (principal); N23 Unspecified renal colic; N13.30 Unspecified hydronephrosis; N17.9 Acute kidney failure, unspecified; Z87.891 Personal history of nicotine dependence
CPT/HCPCS: 52282; 74176; 76001; 93005; G0378; J0690; J0696; J1100; J1885; J2001; J2250; J2370; J2405; J2704; J3010; Q9967; 82365-90; 82947-QW; C1758; C1769; C1894; C2625

== ENCOUNTER 2017-04-18 06:44 | Day surgery (SDC) | payer OTHER ==
[~2017-04-18 06:44] MED LIST: AMPICILLIN SODIUM 2 GM in NS 100 ML IV ONE; GENTAMICIN SULFATE 400 MG in D5W 100 ML IV ONE; OPIUM/BELLADONNA ALKALO SUPP PR ONE; ceFAZolin 2 GM in D5W 100 ML IV ONE
[2017-04-18] MEDS ORDERED: LR 1,000 ML IV ONE (06:56)
[2017-04-18] MEDS ORDERED: LIDOCAINE 1% 2 ML INJ ID PRN (06:56)
[2017-04-18] MEDS ORDERED: LIDOCAINE 2% JELLY 20 ML (UROJECT) ONE (07:12)
[2017-04-18] MEDS ORDERED: IOPAMIDOL (ISOVUE-M 300) 15 ML VIAL ONE (07:12)
--- NOTE | 2017-04-18 07:17 | PDHPUP ---
History & Physical Update H&P update statement: This history and physical update is based on an assessment of the patient which was completed after admission or registration (within 24 hours), but prior to the surgery/procedure. H&P update: H&P reviewed & patient examined H&P changes: Having diarrhea, but no dysuria, fevers or chills, Very anxious. Discussed cancelling surgery today and rescheduling and she desires to proceed. Afebrile here in Preop. NO abdominal tenderness on exam.
--- NOTE | 2017-04-18 07:21 | PDANEPAE ---
ANE History of Present Illness 71 year old female for ureteroscopy and lithotripsy. ANE Past Medical History - Cardiovascular History Hx Hypertension: Yes Hx Arrhythmias: No Hx Chest Pain: No Hx Coronary Artery / Peripheral Vascular Disease: No Hx CHF / Valvular Disease: No Hx Palpitations: No - Pulmonary History Hx COPD: No Hx Asthma/Reactive Airway Disease: No Hx Recent Upper Respiratory Infection: No Hx Oxygen in Use at Home: No Hx Sleep Apnea: No Sleep Apnea Screening Result - Last Documented: Positive Pulmonary History Comment: CPAP - Neurologic History Hx Cerebrovascular Accident: No Hx Seizures: No Hx Dementia: No - Endocrine History Hx Diabetes: No Hypothyroid: No Hyperthyroid: No Obesity: moderate - Renal History Hx Renal Disorders: Yes Renal History Comment: Kidney stones - Liver History Hx Hepatic Disorders: No - Neurological & Psychiatric Hx Hx Neurological and Psychiatric Disorders: No - Cancer History Hx Cancer: No - Congenital Disorder History Hx Congenital Disorders: No - GI History GERD: no Hx Gastrointestinal Disorders: Yes Gastrointestinal History Comment: Irritable bowel - Other Health History Other Health History: parathyroid disease,. skin on left hand raw from previous hospitalization - Chronic Pain History Chronic Pain: Yes (KNEES) - Surgical History Prior Surgeries: Lt. breast lumpectomy. Bilateral leg phlebectomy. ANE Review of Systems Review of systems is: negative Review of Systems: - Exercise capacity Exercise capacity: >=4 METS METS (RN): 4 METS ANE Patient History - Allergies Allergies/Adverse Reactions: Beef Containing Products Allergy (Verified 04/02/17 12:49) Milk Containing Products Allergy (Verified 04/02/17 12:49) pineapple Allergy (Verified 04/02/17 12:49) eggs Allergy (Uncoded 04/12/16 12:04) milk Allergy (Uncoded 04/12/16 12:05) - Home Medications Home medications: home medication list seen and reviewed Home Medications: Co Q-10 04/12/16 [Last Taken 04/11/17] [place] 3/Dha/Epa/Other Om3/D3 04/12/16 [Last Taken 04/01/17] Vitamin D3 (*) 04/12/16 [Last Taken 04/01/17] RX: Ascorbic Acid [Vitamin C 500 mg (*)] 04/02/17 [Last Taken 04/17/17] RX: Valsartan [Diovan (*)] 04/02/17 [Last Taken 04/17/17 11:55] - NPO status NPO Status: no food or drink >8 hours - Anes Hx Anes Hx: post operative nausea and vomiting - Smoking Hx Smoking Status: Former smoker - Alcohol Use Alcohol Use: None - Family Anes Hx Family Anes Hx: neg - N/A Family Hx Anesthesia Complications: none ANE Labs/Vital Signs - Vital Signs Vital Signs: reviewed preoperatively; see RN documention for details Height: 157.48 cm Weight: 104.326 kg ANE Physical Exam - Airway Neck exam: FROM Mallampati Score: Class 1 Mouth exam: normal dental/mouth exam - Pulmonary Pulmonary: no respiratory distress - Cardiovascular Cardiovascular: regular rate and rhythym - ASA Status ASA Status: II ANE Anesthesia Plan Anesthesia Plan: general endotracheal anesthesia, GA w LMA Total IV Anesthesia: No
[2017-04-18] MEDS ORDERED: fentaNYL 100 MCG/2 ML INJ ONE (07:23)
[2017-04-18] MEDS ORDERED: PROPOFOL 200 MG/20 ML VIAL ONE ×2 (07:23→09:12)
[2017-04-18] MEDS ORDERED: PROPOFOL/EMULSION 500 MG/50 ML BOTTLE IV ONE (07:25)
[2017-04-18 07:30] VITALS: PULSE 89
[2017-04-18] MEDS ORDERED: OPIUM/BELLADONNA ALKALO SUPP PR ONE (07:53)
[2017-04-18] MEDS ORDERED: ONDANSETRON 4 MG/2 ML VIAL ONE (08:44)
[2017-04-18] MEDS ORDERED: DEXAMETHASONE 4 MG/ML VIAL ONE ×2 (08:44)
[2017-04-18] MEDS ORDERED: PHENAZOPYRIDINE HCL 200 MG TAB PO ONE (09:40)
--- NOTE | 2017-04-18 09:40 | POSTOPPROG ---
Post Op Note Date of Operation: 04/18/17 Surgeon: Cee Garcia Elevating Grader Operator: none Anesthesia: LMA Pre-op Diagnosis: right renal nephrolithiasis Post-op Diagnosis: same Indication: right nephrolithiasis Procedure: cystoscopy, R ureteroscopy, laser lithotripsy, stent, basket ext st, fluoro Findings: right upper pole and lower pole stones Inf/Abcess present in the surg proc area at time of surgery?: No Depth: Organ Space (right collecting system) EBL: Minimal Complications: None, patient tolerated procedure well
[2017-04-18] MEDS ORDERED: HYDROCODONE/APAP 5/325 TAB PO PRN (09:50)
[2017-04-18] MEDS ORDERED: fentaNYL 100 MCG/2 ML INJ IVP PRN (09:50)
[2017-04-18] MEDS ORDERED: NALOXONE HCL 0.4 MG/ML INJ IVP PRN (09:50)
[2017-04-18] MEDS ORDERED: LABETALOL HCL 5 MG/ML 20 ML MDV IVP PRN (09:50)
[2017-04-18] MEDS ORDERED: LR 500 ML IV PRN (09:50)
[2017-04-18] MEDS ORDERED: ONDANSETRON 4 MG/2 ML VIAL IVP PRN (09:50)
[2017-04-18] MEDS ORDERED: MEPERIDINE 25 MG/ML SYR IVP PRN (09:50)
--- NOTE | 2017-04-18 10:40 | POSTANESTH ---
Post Anesthetic Evaluation Cardiovascular Status: Normal, Stable, Similar to Pre-Op Cond Respiratory Status: Normal, Stable, Similar to Pre-op Cond. Level of Consciousness/Mental Status: Can Participate in Eval, Alert and Oriented Pain Control: Adequate, Prn Tx Ordered Nausea/Vomiting Control: Adequate, Prn Tx Ordered Complications Possibly Related to Anesthesia: None Noted
[2017-04-18 11:36] VITALS: RESP 16
[2017-04-18 14:28] VITALS: TEMP 99.1
[2017-04-18 14:29] VITALS: BP 125/67; O2SAT 94
--- NOTE | 2017-04-18 15:18 | GOP ---
[f rep st] OPERATIVE REPORT DATE OF OPERATION: 04/18/2017 SURGEON: Cee Garcia MD PREOPERATIVE DIAGNOSIS: Right renal nephrolithiasis. POSTOPERATIVE DIAGNOSIS: Right renal nephrolithiasis. PROCEDURE PERFORMED: FINDINGS: INDICATIONS: The patient presented to the ER a couple of weeks ago with right ureteral stone. We went back to the operating room and we relieved her of that obstruction, but she still had nonobstructing stones in her right collecting system. At that time, I was unable to advance my instruments up into the right collecting system due to ureteral narrowing and I felt to place a stent and allow passive dilation of the ureter and then come back at a later date. She comes back today for treatment of those right renal stones. We did consent in my office and a preoperative evaluation, and she was ready to proceed. Today, she has some diarrhea since our surgery, but otherwise, no fevers, chills , dysuria, or any complaints. Also, there was a preoperative urine culture that resulted yesterday showing some Enterococcus faecalis and I did give her ampicillin and gentamicin per that culture. There were only 20,000 to 30,000 colonies in that culture. DESCRIPTION OF PROCEDURE: She was seen in the preoperative holding area where again the rationale, risks, and benefits of the procedure were reviewed in detail. She had her ampicillin already running and gentamicin would be running soon. She was marked and we confirmed that she still wanted to proceed with the procedure. She was taken back to the cystoscopy suite, placed on the cystoscopy table in a supine position. A LMA was placed without complication. A time-out was performed and core measures were satisfied, including placement of a Sergey-Hugger , SCDs, and re-verification that ampicillin and gentamicin had been given as preoperative antibiotics. She was brought to the end of the table, placed in a dorsal lithotomy position, and all pressure points were padded. Genitalia draped and prepped in standard surgical fashion with Betadine. A rigid cystoscope easily cannulated her urethral meatus and was advanced atraumatically into the bladder. Grasper was used to externalize the distal end of the stent, and then, a 0.035 Glidewire was advanced through the stent with fluoroscopic guidance into the right collecting system. The stent was removed leaving the wire in place. Then, then cystoscope was re-advanced into the bladder and another 0.035 Glidewire was placed with fluoroscopic guidance into the right collecting system, so now we had a working wire, as well as a safety wire. Of note, I ran all of my own fluoroscopy during the entire case and interpreted all of it myself. When 2 wires were up, then a 12-14 [place] ureteral access sheath was advanced with fluoroscopic guidance over the working wire and easily advanced up into the right collecting system without any friction or hesitation. Then, I advanced a flexible ureteroscope in the right collecting system. I found the stone in the right upper pole. This was lasered into dust and then smaller fragments were basket extracted. I completely cleared her of this 1 stone and what remained was just nonbasketable dust. Of note, there was another stone that I encountered in the upper collecting system that on CT scan may have been near this, but it looked liked 1 stone, and I was able to basket this stone in its entirety without needing the laser. I then looked around the remaining collecting system and especially went after a tiny little stone that was in the lower pole. This stone was still covered with some calyceal parenchyma, but I was able to laser a little bit over that stone, expose the stone, and then basket it in its entirety. I looked around the remaining calyces. There were no other stones or abnormalities seen. I feel I did clear her of stone and the procedure went well. The urethroscope was removed with the access sheath together examining the wall of the ureter. The ureter had mild edema, but otherwise looked well. The safety wire was still up, and then I back-loaded the safety wire into the cystoscope, and then advanced a 6-[place] x 24 cm double-J stent over that wire with fluoroscopic guidance. There was a nice curl in the renal pelvis and a nice curl in the bladder that I saw directly on fluoroscopy, as well as with my cystoscope. Her bladder was emptied. Then, belladonna and opium suppository, as well as lidocaine jelly was placed. She tolerated the procedure well and was awoken from anesthesia and transferred to the PACU in good condition. She will be discharged today to home and Pyridium will be given in PACU. Will remove her stent in a week. /[id number]/MODL MTDD
[2017-04-21 18:20] LABS: SOURCE OF STONE RT URETERAL
[2017-04-21 18:21] LABS: NIDUS NOT OBSERVED
== END 2017-04-18 13:50 | disposition home or self-care (01) ==
LOC: FSGY 06:44
PROVIDERS: ATTEND Urology
PROC: 0TF68ZZ Fragmentation in Right Ureter, Via Natural or Artificial Opening Endoscopic (ICD-10-PCS; principal; 2017-04-18 07:15)
DX: N20.1 Calculus of ureter (principal)
CPT/HCPCS: 52353; 76001; C1769; C1894; 82365-90; C2625; J0290; J1100; J2405; J2704; J3010; Q9967

== ENCOUNTER → 2017-05-23 | Outpatient (CLI) | payer OTHER | LOC: FIMAGING 13:11 | PROVIDERS: ATTEND Urology | DX: N20.0 Calculus of kidney (principal); N94.89 Other specified conditions associated with female genital organs and menstrual cycle ==

== ENCOUNTER → 2017-05-23 | Outpatient (CLI) | payer OTHER | LOC: FIMAGING 13:08 | PROVIDERS: ATTEND Internal Medicine | DX: Z12.31 Encounter for screening mammogram for malignant neoplasm of breast (principal) ==

== ENCOUNTER → 2017-09-06 | Outpatient (CLI) | payer OTHER | LOC: FIMAGING 14:17 | PROVIDERS: ATTEND Urology | DX: N13.30 Unspecified hydronephrosis (principal); N20.0 Calculus of kidney ==

== ENCOUNTER → 2018-01-26 | Outpatient (CLI) | payer OTHER | LOC: FIMAGING 13:20 | PROVIDERS: ATTEND Internal Medicine Endocrinology, Diabetes & Metabolism | DX: Z13.820 Encounter for screening for osteoporosis (principal); M81.0 Age-related osteoporosis without current pathological fracture; Z78.0 Asymptomatic menopausal state ==

== ENCOUNTER → 2018-03-10 | Outpatient (CLI) | payer OTHER | LOC: FIMAGING 10:47 | PROVIDERS: ATTEND Urology | DX: R33.9 Retention of urine, unspecified (principal) ==

== ENCOUNTER → 2018-03-13 | Outpatient (CLI) | payer OTHER | LOC: FIMAGING 07:41 | PROVIDERS: ATTEND Radiology Diagnostic Radiology | DX: I83.93 Asymptomatic varicose veins of bilateral lower extremities (principal) ==

== ENCOUNTER → 2018-07-10 | Outpatient (CLI) | payer OTHER | LOC: FIMAGING 13:27 | PROVIDERS: ATTEND Internal Medicine | DX: Z12.31 Encounter for screening mammogram for malignant neoplasm of breast (principal) ==

== ENCOUNTER → 2018-07-17 | Outpatient (CLI) | payer OTHER | LOC: BMCIMAGING 10:12 | PROVIDERS: ATTEND Podiatrist Foot & Ankle Surgery | DX: M79.672 Pain in left foot (principal); M79.671 Pain in right foot; M85.89 Other specified disorders of bone density and structure, multiple sites; M20.11 Hallux valgus (acquired), right foot; M20.41 Other hammer toe(s) (acquired), right foot; M20.42 Other hammer toe(s) (acquired), left foot; M21.42 Flat foot [pes planus] (acquired), left foot; M21.41 Flat foot [pes planus] (acquired), right foot; M77.32 Calcaneal spur, left foot; M77.31 Calcaneal spur, right foot ==

== ENCOUNTER → 2018-08-18 | Outpatient (CLI) | payer OTHER | LOC: FIMAGING 13:14 | PROVIDERS: ATTEND Internal Medicine | DX: N64.89 Other specified disorders of breast (principal) ==